=== PATIENT | female | born 1980 ===

== ENCOUNTER 2018-02-28 08:08 | Emergency (ER) | payer OTHER ==
[2018-02-28 08:30] VITALS: RESP 16
[2018-02-28 09:37] LABS: HCG,QUALITATIVE URINE NEGATIVE (NEGATIVE)
[2018-02-28 09:41] LABS: SQUAMOUS EPITHIAL 2 /hpf (0-5); URINE BILIRUBIN NEGATIVE (NEGATIVE); URINE BLOOD NEGATIVE (NEGATIVE); URINE CLARITY Hazy (Clear); URINE COLOR Yellow (YELLOW); URINE GLUCOSE (UA) NORMAL (Normal); URINE LEUKOCYTE ESTERASE NEG Leu/uL (Negative); URINE PROTEIN NEGATIVE (NEGATIVE)
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
[2018-02-28 11:53] VITALS: BP 122/75; PULSE 92; TEMP 98.2; O2SAT 100
== END 2018-02-28 11:15 | disposition home or self-care (01) ==
LOC: C.ER 08:08
DX: Z04.41 Encounter for examination and observation following alleged adult rape (principal)